=== PATIENT | male | born 1950 | race Caucasian/White ===

== ENCOUNTER 2022-06-22 07:14 | Observation (INO) | payer OTHER, MEDICARE ==
[~2022-06-22] VITALS: Ht 182.9 cm; Wt 93.4 kg
[2022-06-22] VITALS (10 sets, daily range): BP systolic 94–142; BP diastolic 43–89
[2022-06-22] MEDS ORDERED: NITROGLYCERIN 1GM OINT 1 INCH/1GM TD ONE (07:46)
[2022-06-22 07:48] LABS: BASOPHILS % (AUTO) 0.6 % (0.0-5.0); LYMPHOCYTES % (AUTO) 28.5 % (21.0-51.0); MEAN CORPUSCULAR HGB CONC 34.3 g/dL (32.0-36.0); MEAN CORPUSCULAR VOLUME 90.3 fL (79-99); MONOCYTES % (AUTO) 8.1 % (3.0-13.0); NEUTROPHILS % (AUTO) 58.6 % (40.0-77.0); PLATELET COUNT (AUTO) 164 K/uL (130-400); RED BLOOD CELL COUNT(AUTO) 4.87 MIL/uL (4.50-6.20); RED CELL DISTRIBUTION WIDTH 12.4 % (11.0-15.5); WHITE BLOOD COUNT (AUTO) 5.3 K/uL (4.8-10.8)
[2022-06-22] MEDS ORDERED: NITROGLYCERIN 1GM OINT 1 INCH/1GM TD SCH (08:00)
[2022-06-22 08:15] LABS: B-TYPE NATRIURETIC PEPTIDE 42 pg/mL (0-100)
[2022-06-22 08:23] LABS: ALBUMIN 3.9 g/dL (3.5-5.0); CREATININE 1.1 mg/dL (0.5-1.5); POTASSIUM 4.7 mmol/L (3.5-5.1); TOTAL PROTEIN, SERUM 7.3 g/dL (6.0-8.3)
[2022-06-22 08:58] LABS: APPEARANCE,URINE CLEAR (CLEAR); BILIRUBIN,URINE NEGATIVE (NEGATIVE); COLOR,URINE LIGHT-YELLOW (YELLOW); GLUCOSE, URINE (UA) NEGATIVE (NEGATIVE); KETONES,URINE NEGATIVE (NEGATIVE); LEUKOCYTE ESTERASE ,URINE 75 Leu/uL (NEGATIVE); NITRATE,URINE NEGATIVE (NEGATIVE); OCCULT BLOOD,URINE NEGATIVE (NEGATIVE); PROTEIN,URINE NEGATIVE (NEGATIVE); UROBILINOGEN,URINE 0.2 mg/dL (0.2-1.0)
[2022-06-22 09:25] LABS: RBC,URINE 0-1 /HPF (0-1)
[2022-06-22] MEDS ORDERED: 0.9% NACL 500ML IV.SOLN 500 ML IV SCH (09:30)
[2022-06-22 09:51] LABS: INR 0.93 (0.85-1.15); PROTHROMBIN TIME 9.7 SEC (9.6-11.6)
[2022-06-22 09:52] LABS: PARTIAL THROMBOPLASTIN TIME 28.2 SEC (26.3-35.5)
[2022-06-22] MEDS ORDERED: ACETAMINOPHEN 325 MG TAB PO PRN (10:30)
[2022-06-22] MEDS ORDERED: MORPHINE 2 MG SYG IVP PRN (10:30)
[2022-06-22] MEDS ORDERED: ONDANSETRON 4MG INJ IVP PRN ×2 (10:30→17:30)
[2022-06-22 11:00] LABS: CHOLESTEROL 203 mg/dL (<200); HDL CHOLESTEROL 45 mg/dL (29-71); LDL DIRECT 122 mg/dL (0-99); TRIGLYCERIDES 114 mg/dL (30-200)
[2022-06-22] MEDS ORDERED: ISOS30TA92 PO (11:07)
[2022-06-22] MEDS ORDERED: CARV3.12 PO (11:07)
[2022-06-22] MEDS ORDERED: LOSA50TA64 PO (11:07)
[2022-06-22] MEDS ORDERED: EZET-57 PO (11:07)
[2022-06-22] MEDS ORDERED: RIVA2.5T PO (11:07)
[2022-06-22] MEDS ORDERED: ROSU5TAB12 PO (11:07)
[2022-06-22] MEDS ORDERED: IOHEXOL-350 50ML VIAL IV ONE (16:30)
[2022-06-22] MEDS ORDERED: HEPARIN 10,000 UNIT/10ML (1,000 UNIT/ML) VIAL ONE (16:30)
[2022-06-22] MEDS ORDERED: IOHEXOL 350 MG/ML 100ML INFUS..BTL IV ONE (16:30)
[2022-06-22] MEDS ORDERED: LIDOCAINE HCL 400MG/20ML VIAL ONE (16:31)
[2022-06-22] MEDS ORDERED: CLOPIDOGREL 300MG TAB ONE (17:14)
[2022-06-22] MEDS ORDERED: ASPIRIN 325MG EC TAB PO ONE (17:14)
[2022-06-22] MEDS ORDERED: HYDRALAZINE 20MG/ML VIAL ONE (17:25)
[2022-06-22] MEDS ORDERED: ACETAMINOPHEN WITH CODEINE 1 TAB TAB PO PRN ×2 (17:30)
[2022-06-22] MEDS ORDERED: MORPHINE 5 MG/ML VIAL (5MG OR GREATER DOSE) IVP SCH ×2 (17:30)
[2022-06-22] MEDS ORDERED: TEMAZEPAM 30 MG CAP PO PRN (17:30)
[2022-06-22] MEDS ORDERED: ONDANSETRON 4MG INJ IVP SCH (17:30)
[2022-06-22] MEDS ORDERED: NITROGLYCERIN 50MG/D5W 250ML 1 BOT IV PRN (17:30)
[2022-06-22] MEDS ORDERED: ATORVASTATIN 20 MG TABLET PO SCH (21:00)
[2022-06-23 03:46] VITALS: BP 130/75
[2022-06-23 04:18] LABS: HEMATOCRIT 43.8 % (42-54); MEAN CORPUSCULAR HEMOGLOBIN 31.1 pg (27.0-33.0); MEAN CORPUSCULAR HGB CONC 33.6 g/dL (32.0-36.0); MEAN CORPUSCULAR VOLUME 92.8 fL (79-99); RED BLOOD CELL COUNT(AUTO) 4.72 MIL/uL (4.50-6.20); RED CELL DISTRIBUTION WIDTH 12.4 % (11.0-15.5); WHITE BLOOD COUNT (AUTO) 6.6 K/uL (4.8-10.8)
[2022-06-23 04:30] LABS: CREATININE 0.9 mg/dL (0.5-1.5); POTASSIUM 4.1 mmol/L (3.5-5.1)
[2022-06-23] MEDS ORDERED: ATORVASTATIN 10 MG TABLET PO SCH (06:53)
[2022-06-23 07:00] VITALS: BP 139/73
[2022-06-23] MEDS ORDERED: CLOP-31 PO (07:07)
[2022-06-23] MEDS ORDERED: ASPI-1005 PO (07:07)
[2022-06-23] MEDS ORDERED: ROSU10TA28 PO (07:07)
[2022-06-23 08:08] VITALS: BP 139/73
[2022-06-23] MEDS ORDERED: CARVEDILOL 3.125 MG TABLET PO SCH (09:00)
[2022-06-23] MEDS ORDERED: CLOPIDOGREL 75MG TAB PO SCH (09:00)
[2022-06-23] MEDS ORDERED: PANTOPRAZOLE 40 MG TAB DR PO SCH (09:00)
[2022-06-23] MEDS ORDERED: SIMVASTATIN 10 MG TABLET PO SCH (09:00)
[2022-06-23] MEDS ORDERED: ENOXAPARIN SODIUM 30 MG/0.3 ML SQ SCH (09:00)
[2022-06-23] MEDS ORDERED: EZETIMIBE 10 MG TAB PO SCH (09:00)
[2022-06-23] MEDS ORDERED: ASPIRIN 81MG CHEW TAB PO SCH ×2 (09:00)
[2022-06-23] MEDS ORDERED: LOSARTAN 50 MG TABLET PO SCH (09:00)
== END 2022-06-23 11:55 | disposition home or self-care (01) ==
LOC: EDH 07:14 → EDHIP 07:15 → 2DH 18:32
PROVIDERS: ADMIT Hospitalist; ATTEND Hospitalist
DX: I25.110 Atherosclerotic heart disease of native coronary artery with unstable angina pectoris (principal); Z20.822 Contact with and (suspected) exposure to COVID-19; I16.1 Hypertensive emergency; I10 Essential (primary) hypertension; E78.00 Pure hypercholesterolemia, unspecified; E78.5 Hyperlipidemia, unspecified; I73.9 Peripheral vascular disease, unspecified; I87.2 Venous insufficiency (chronic) (peripheral); G47.00 Insomnia, unspecified; K59.00 Constipation, unspecified; R07.89 Other chest pain; Z79.01 Long term (current) use of anticoagulants; Z86.718 Personal history of other venous thrombosis and embolism; Z95.828 Presence of other vascular implants and grafts; Z79.899 Other long term (current) drug therapy; Z98.890 Other specified postprocedural states; Z90.49 Acquired absence of other specified parts of digestive tract
CPT/HCPCS: 93458; 96374; 99285; 83735; 84484; 80061 ×2; 80053; 83880; 85347; 85025; 85610; 85730 ×4; 87088; 81001; 36415 ×2; 87635; 71045; 93306; 93005; 96372; 80048; 85027; C1769; C1887; C1894; C1874; Q9965; G0378 ×22; J3490; J0360; J1644 ×2; J2405; Q9967; C9600; J1650